=== PATIENT | female | born 1940 | race Caucasian/White ===

== ENCOUNTER → 2017-05-10 | Outpatient (CLI) | payer OTHER ==
[~2017-05-10] MED LIST: ADULT LOW DOSE81 MG PO; CALCIUM 600 +1 EAC1 PO; CARDIZEM CD240 MG PO; DIGOX125 MCG PO; LASIX 40 MG TAB40 M2 PO; MAGOX 400400 MG PO; NORCO 5-325 TA1 EACH PO; POTASSIUM20 PO; SYNTHROID50 MCG PO; THEREMS-M1 EACH PO
== END ==
LOC: M.CT 10:27
DX: R91.8 Other nonspecific abnormal finding of lung field (principal); J98.11 Atelectasis; I70.0 Atherosclerosis of aorta; I70.8 Atherosclerosis of other arteries; Z90.49 Acquired absence of other specified parts of digestive tract

== ENCOUNTER 2017-07-03 13:05 | Emergency (ER) | payer OTHER ==
[~2017-07-03] VITALS: Ht 167.6 cm; Wt 85.7 kg
[~2017-07-03 13:05] MED LIST changes: -CALCIUM 600 +1 EAC1 PO; -CARDIZEM CD240 MG PO; -DIGOX125 MCG PO; -LASIX 40 MG TAB40 M2 PO; -MAGOX 400400 MG PO; -NORCO 5-325 TA1 EACH PO; -POTASSIUM20 PO; -SYNTHROID50 MCG PO; -THEREMS-M1 EACH PO
[2017-07-03] MEDS ORDERED: CALCIUM 600 +1 EAC1 PO (13:15)
[2017-07-03] MEDS ORDERED: DIGOX125 MCG PO (13:16)
[2017-07-03] MEDS ORDERED: SYNTHROID50 MCG PO (13:17)
[2017-07-03] MEDS ORDERED: CARDIZEM CD240 MG PO (13:17)
[2017-07-03] MEDS ORDERED: LASIX 40 MG TAB40 M2 PO (13:18)
[2017-07-03] MEDS ORDERED: POTASSIUM20 PO (13:18)
[2017-07-03] MEDS ORDERED: MAGOX 400400 MG PO (13:18)
[2017-07-03] MEDS ORDERED: THEREMS-M1 EACH PO (13:18)
[2017-07-03 13:34] LABS: ABSOLUTE EOSINOPHILS 0.1 thou/uL (0.0-0.7); ABSOLUTE LYMPHOCYTES 1.2 thou/uL (0.8-5.3); ABSOLUTE MONOCYTES 0.4 thou/uL (0.0-1.2); ABSOLUTE NEUTROPHILS 5.2 thou/uL (1.6-8.1); BASOPHILS 0.6 %; HEMATOCRIT 40.9 % (37.0-47.0); HEMOGLOBIN 13.7 gm/dL (12.0-15.0); LYMPHOCYTES 17.7 %; MCH 29.8 pg (26.0-34.0); MCHC 33.6 g/dL (28.0-37.0); MCV 88.8 fL (80.0-100.0); MONOCYTES 5.7 %; MPV 7.9 fl. (7.2-11.1); NUCLEATED RBCS 0 /100WBC; PLATELET COUNT* 204 thou/uL (150-400); RBC 4.61 mil/uL (4.20-5.00); RDW-CV 15.1 % (10.5-14.5)
[2017-07-03 13:39] LABS: CALCIUM 8.8 mg/dL (8.5-10.1); POTASSIUM 4.2 mmol/L (3.5-5.1)
[2017-07-03] MEDS ORDERED: NORCO 5-325 TA1 EACH PO (16:31)
== END 2017-07-03 17:15 | disposition home or self-care (01) ==
LOC: M.ERS 13:05
PROVIDERS: Physician Assistant
DX: S42.402A Unspecified fracture of lower end of left humerus, initial encounter for closed fracture (principal); F03.90 Unspecified dementia, unspecified severity, without behavioral disturbance, psychotic disturbance, mood disturbance, and anxiety; I50.9 Heart failure, unspecified; I48.91 Unspecified atrial fibrillation; Z90.710 Acquired absence of both cervix and uterus; W01.0XXA Fall on same level from slipping, tripping and stumbling without subsequent striking against object, initial encounter; Y93.89 Activity, other specified; Y92.128 Other place in nursing home as the place of occurrence of the external cause; Y99.8 Other external cause status

== ENCOUNTER 2019-02-17 13:16 | Inpatient (IN) | payer OTHER ==
[~2019-02-17] VITALS: Ht 167.6 cm; Wt 73.8 kg
[~2019-02-17 13:16] MED LIST changes: +CALCIUM 600 +1 EAC1 PO; +CARDIZEM CD 30300 M1 PO; +DIGOX125 MCG PO; +LASIX 40 MG TAB40 M2 PO; +MAGOX 400400 MG PO; +NORCO 5-325 TA1 EACH PO; +POTASSIUM20 PO; +SYNTHROID50 MCG PO; +THEREMS-M1 EACH PO
[2019-02-17 13:20] VITALS: BP 141/60
[2019-02-17 13:30] LABS: ABSOLUTE EOSINOPHILS 0.1 thou/uL (0.0-0.7); ABSOLUTE MONOCYTES 0.4 thou/uL (0.0-1.2); ABSOLUTE NEUTROPHILS 3.5 thou/uL (1.6-8.1); BASOPHILS 0.2 %; EOSINOPHILS 2.2 %; HEMATOCRIT 40.8 % (37.0-47.0); HEMOGLOBIN 14.2 gm/dL (12.0-15.0); LYMPHOCYTES 33.3 %; MCH 30.4 pg (26.0-34.0); MCHC 34.7 g/dL (28.0-37.0); MCV 87.5 fL (80.0-100.0); MONOCYTES 7.2 %; MPV 7.9 fl. (7.2-11.1); NUCLEATED RBCS 0 /100WBC; PLATELET COUNT* 231 thou/uL (150-400); POLYS 57.1 %; RBC 4.66 mil/uL (4.20-5.00); RDW-CV 14.6 % (10.5-14.5); WBC 6.1 thou/uL (4.0-11.0)
[2019-02-17] MEDS ORDERED: LEVO-T25 MCG PO (13:33)
[2019-02-17] MEDS ORDERED: ARICEPT10 M1 PO (13:33)
[2019-02-17] MEDS ORDERED: SEROQUEL 25 MG25 MG PO (13:34)
[2019-02-17] MEDS ORDERED: SPIRONOLACTONE25 MG PO (13:35)
[2019-02-17] MEDS ORDERED: SYSTANE 0.3-0.1 EACH OTIC (13:35)
[2019-02-17 13:39] LABS: POTASSIUM 3.4 mmol/L (3.5-5.1)
[2019-02-17 13:43] LABS: ALBUMIN 3.9 g/dL (3.4-5.0); APTT 34.6 Seconds (25.0-31.3); PROTIME 10.7 Seconds (9.20-11.50); TOTAL BILIRUBIN 0.9 mg/dL (<0.1-1.0); TOTAL PROTEIN 7.2 g/dL (6.4-8.2)
--- NOTE | 2019-02-17 16:34 | EKG ---
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: GARCIA : 1940 Requested By: Patric Saenz Order Number: [id number] MD: Esequiel Aguilera Measurements Intervals [place] Rate: 46 P: CA: QRS: -11 QRSD: 123 T: -10 QT: 517 QTc: 453 Interpretive Statements Atrial fibrillation Right bundle branch block Compared to ECG 05/29/2010 15:49:43 Right bundle-branch block now present Incomplete right bundle-branch block no longer present T-wave abnormality no longer present Possible ischemia no longer present Prolonged QT interval no longer present Electronically Signed On 02-17-2019 16:33:46 CDT by Esequiel Aguilera [email or web address] <ELECTRONICALLY SIGNED> By: Esequiel Aguilera MD, FACC 02/17/19 1633 1326 1326 Esequiel Aguilera MD, FACC /EPI
[2019-02-17 17:13] VITALS: BP 111/67
[2019-02-17 18:00] LABS: URINE BILIRUBIN NEGATIVE (Negative); URINE BLOOD TRACE (Negative); URINE CLARITY CLOUDY; URINE COLOR YELLOW; URINE GLUCOSE-RANDOM NEGATIVE (Negative); URINE KETONES NEGATIVE (Negative); URINE LEUKOCYTES-REFLEX 3+ (Negative); URINE NITRITE-REFLEX NEGATIVE (Negative); URINE PROTEIN NEGATIVE (Negative)
[2019-02-17 18:07] LABS: BACTERIA-REFLEX >30 Many /HPF (None Seen); HYALINE CASTS 4-10 Moderate /LPF (None Seen); SQUAMOUS >10 Many /LPF (0-3); URINE WBC-REFLEX >25 Many /HPF (0-5)
[2019-02-17 18:08] LABS: CRYSTALS None Seen /LPF (None Seen); MUCUS 0-3 Light strn/LPF (None Seen); URINE RBC 0-2 Rare /HPF (0-2); WBC CLUMPS Few (None Seen)
[2019-02-17 18:15] VITALS: BP 119/45
[2019-02-17 20:00] VITALS: BP 125/47
[2019-02-18] VITALS: BP 123/42
[2019-02-18 04:22] VITALS: BP 112/63
[2019-02-18 08:00] VITALS: BP 118/68
[2019-02-18 11:48] VITALS: BP 101/51
--- NOTE | 2019-02-18 14:10 | 2DMMODE ---
[place] [address] 2 D/M-MODE ECHOCARDIOGRAM Name: RANJITH KWON Room: [address] IN [facility]#: [id number] Admission: 02/17/19 Attend Phys: Rudolph Singh Discharge: Date of : 36 Date of Service: 02/18/19 1410 Report #: [id number] THIS REPORT FOR: //name// APPROVED REPORT Study performed: 02/18/2019 10:47:52 EXAM: Comprehensive 2D, Doppler, and color-flow Echocardiogram Patient Location: In-Patient Room #: [facility] BSA: 1.85 HR: 70 bpm BP: 118/68 mmHg Other Information Study Quality: Fair Indications Atrial Fibrillation 2D Dimensions IVSd: 11.74 (7-11mm) LVOT Diam: 20.65 (18-24mm) LVDd: 45.25 mm PWd: 11.74 (7-11mm) Ascending Ao: 33.04 (22-36mm) LVDs: 31.12 (25-40mm) Aortic Root: 29.21 mm Volumes Left Atrial Volume (Systole) LA ESV Index: 31.30 mL/m2 Aortic Valve AoV Peak Syed.: 1.32 m/s AO Peak Gr.: 6.97 mmHg LVOT Max P.54 mmHg AO Mean Gr.: 3.57 mmHg LVOT Mean P.64 mmHg LVOT Max V: 0.94 m/s AO V2 VTI: 26.04 cm LVOT Mean V: 0.58 m/s ISRA[place] (VTI): 2.77 cm2 LVOT V1 VTI: 21.55 cm Mitral Valve MV Decel. Time: 149.18 ms MV E Max Syed.: 0.52 m/s MV PHT: 43.26 ms MVA (PHT): 5.09 [place]2 [place] [address] 2 D/M-MODE ECHOCARDIOGRAM Name: RANJITH KWON Room: [address] IN [facility].#: [id number] Admission: 02/17/19 Attend Phys: Rudolph Singh Discharge: Date of : 36 Date of Service: 02/18/19 1410 Report #: [id number] TDI E/Lateral E': 3.71 E/Medial E': 5.78 Medial E' Syed.: 0.09 m/s Lateral E' Syed.: 0.14 m/s Pulmonary Valve PV Peak Syed.: 0.75 m/s PV Peak Gr.: 2.26 mmHg Tricuspid Valve RAP Estimate: 5.00 mmHg TR Peak Gr.: 15.36 mmHg RVSP: 20.36 mmHg PA Pressure: 20.36 mmHg Left Ventricle The left ventricle is normal size. There is normal LV segmental wall motion. There is normal left ventricular wall thickness. Left ventricular systolic function is normal. The left ventricular ejection fraction is within the normal range. LVEF is 55-60%. This study is not technically sufficient to allow evaluation of the LV diastolic function due to atrial fibrillation. Right Ventricle The right ventricle is normal size. The right ventricular systolic function is normal. Atria Left atrium is mildly dilated. The right atrium size is normal. Aortic Valve Mild aortic valve sclerosis. No aortic regurgitation is present. There is no aortic valvular stenosis. Mitral Valve The mitral valve is normal in structure. Mild mitral regurgitation. No evidence of mitral valve stenosis. Tricuspid Valve The tricuspid valve is normal in structure. Mild tricuspid regurgitation. Pulmonic Valve The pulmonary valve is normal in structure. There is no pulmonic [place] [address] 2 D/M-MODE ECHOCARDIOGRAM Name: CHERRANJITH [place] Room: [address] IN [facility]#: [id number] Admission: 02/17/19 Attend Phys: Rudolph Singh Discharge: Date of : 36 Date of Service: 02/18/19 1410 Report #: [id number] Great Vessels The aortic root is normal in size. IVC is normal in size and collapses >50% with inspiration. Pericardium There is no pericardial effusion. <Conclusion> The left ventricle is normal size. There is normal left ventricular wall thickness. Left ventricular systolic function is normal. The left ventricular ejection fraction is within the normal range. LVEF is 55-60%. This study is not technically sufficient to allow evaluation of the LV diastolic function due to atrial fibrillation. The right ventricle is normal size. Left atrium is mildly dilated. Mild aortic valve sclerosis. No aortic regurgitation is present. There is no aortic valvular stenosis. The mitral valve is normal in structure. Mild mitral regurgitation. The tricuspid valve is normal in structure. Mild tricuspid regurgitation. IVC is normal in size and collapses >50% with inspiration. There is no pericardial effusion. There is normal LV segmental wall motion. <ELECTRONICALLY SIGNED> By: Mahin Goodrich MD, FACC 02/18/19 141 09 09 Mahin Goodrich MD, FACC /INF
[2019-02-18 15:50] VITALS: BP 132/57
[2019-02-18 20:00] VITALS: BP 102/56
[2019-02-19 00:30] VITALS: BP 125/64
[2019-02-19 04:28] VITALS: BP 135/69
[2019-02-19 08:00] VITALS: BP 134/70
[2019-02-19 11:47] VITALS: BP 113/65
[2019-02-19 13:03] VITALS: BP 113/65
--- NOTE | 2019-02-19 16:57 | EKG ---
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: : 1940 Requested By: Rudolph Singh Order Number: [id number] Ambrose MD: Mahin Goodrich Measurements Intervals [place] Rate: 51 P: [place]: QRS: -29 QRSD: 115 T: -5 QT: 495 QTc: 456 Interpretive Statements Atrial fibrillation Incomplete RBBB and LAFB Low voltage, precordial leads Compared to ECG 02/17/2019 13:26:27 Left anterior fascicular block now present Low QRS voltage now present Electronically Signed On 02-19-2019 16:57:35 CDT by Mahin Goodrich [email or web address] <ELECTRONICALLY SIGNED> By: Mahin Goodrich MD, FACC 02/19/19 1657 0721 0721 Mahin Goodrich MD, [facility] /EPI
== END 2019-02-19 16:10 | DRG 308 ==
LOC: M.ERS 13:16 → M.2W 14:47 → M.TBA-ER 14:47 → M.2W 18:11
PROVIDERS: Family Medicine; ADMIT Internal Medicine
DX: I49.5 Sick sinus syndrome (principal); G93.41 Metabolic encephalopathy; N39.0 Urinary tract infection, site not specified; I50.32 Chronic diastolic (congestive) heart failure; F03.90 Unspecified dementia, unspecified severity, without behavioral disturbance, psychotic disturbance, mood disturbance, and anxiety; I48.91 Unspecified atrial fibrillation; R91.8 Other nonspecific abnormal finding of lung field; Z90.710 Acquired absence of both cervix and uterus; Z79.82 Long term (current) use of aspirin; Z79.899 Other long term (current) drug therapy